=== PATIENT | female | born 1995 | race African-American/Black ===

== ENCOUNTER 2017-06-26 09:51 | Emergency (ER) | payer SELFPAY ==
[~2017-06-26] VITALS: Ht 172.7 cm; Wt 78.0 kg
[~2017-06-26 09:51] MED LIST: DIFL150T PO; FLAG500T PO; ORTHTAB3
[2017-06-26 10:05] VITALS: BP 116/62; PULSE 88; RESP 15; TEMP 97.9; O2SAT 98
[2017-06-26] MEDS ORDERED: ERYTOIN10 RIGHT EYE (11:31)
--- NOTE | 2017-06-26 11:38 | PD ---
HPI Chief Complaint: Eye Problems/Injury Time Seen by Provider: 11:27 Travel History International Travel<30 days: No Contact w/Intl Traveler<30days: No Traveled to known affect area: No History of Present Illness HPI 22 YO F presents to the ED for evaluation of 2 day history of crusting, tearing , sarah sensation and redness of the right eye. Gradual onset. She states the eye is crusted shut in the morning. Patient denies history of seasonal allergies, cold or flu symptoms. Denies foreign body sensation, changes in vision, fevers, chills. She has never had a problem like this in the past. She states that she had a false lashes placed a few weeks ago. She states that she was staying at a hotel for spring when symptoms onset. PFSH Past Medical History Gastrointestinal Disorders: Yes ([facility]) ?: Not LMP: 06/2017 Social History Alcohol Use: No Tobacco Use: No Substance Use: Yes (marijuana daily) Allergies-Medications (Allergen,Severity, Reaction): Coded Allergies: No Known Allergies (Unverified Adverse Reaction, Unknown, 06/26/17) Reported Meds & Prescriptions Reported Meds & Active Scripts Active Flagyl (Metronidazole) 500 Mg Tab 500 Mg PO BID Diflucan 150 mg (Fluconazole) 150 Mg Tab 150 Mg PO ONCE Reported Ortho Tri-Cyclen Lo (Norgestimate-Ethinyl Estradiol) Cycln Lo Tab Review of Systems Except as stated in HPI: all other systems reviewed are Neg Physical Exam Narrative GENERAL: Well-nourished, well-developed AA female in no acute distress. SKIN: Warm and dry. HEAD: Normocephalic. Atraumatic. EYES: No scleral icterus. PERRLA. EOMI. Right eye mildly injected. No evidence of hordeolum. No abrasion noted on fluorescein exam. ENT: Pearly lamb tympanic membranes bilaterally. Nasal mucosa is moist. Oropharynx without erythema, edema or exudate. NECK: Supple, trachea midline. No JVD or lymphadenopathy. CARDIOVASCULAR: Regular rate and rhythm without murmurs, gallops, or rubs. No carotid bruits. 2+ DP and radial pulses bilaterally. RESPIRATORY: Breath sounds clear and equal bilaterally. No accessory muscle use. GASTROINTESTINAL: Abdomen soft, non-tender, nondistended. + Bowel sounds MUSCULOSKELETAL: No cyanosis, or edema. Full, active range of motion. Strength 5/5. Neurovascularly intact. BACK: Nontender without obvious deformity. No CVA tenderness. Data Data Last Documented VS Vital Signs Date Time Temp Pulse Resp B/P (MAP) Pulse Ox O2 Delivery O2 Flow Rate FiO2 06/26/17 10:05 97.9 88 15 116/62 (80) 98 MDM Medical Decision Making Medical Screen Exam Complete: Yes Emergency Medical Condition: Yes Differential Diagnosis Conjunctivitis versus hordeolum versus corneal abrasion versus other Narrative Course 22 YO F presents to the ED for evaluation of 2 day history of crusting, tearing , sarah sensation and redness of the right eye. She states that he was shut in the morning with "goop." Patient denies history of seasonal allergies, cold or flu symptoms. Denies foreign body sensation, changes in vision, fevers, chills. She had false lashes placed last week. She states that she was staying at a hotel for spring when symptoms onset. Vitals reviewed. Exam consistent with conjunctivitis. Patient is prescribed erythromycin ointment 4 times a day 5 days. She was given detailed care instructions, instructed to follow with the supervisor beam department if symptoms are not improved. She is stable and discharged home. Diagnosis Primary Impression: Conjunctivitis Qualified Codes: H10.31 - Unspecified acute conjunctivitis, right eye Referrals: Senior Network Administrator Additional Instructions: Rest, hydrate. Use ointment ribbon 4 times daily as prescribed. Wash hands before and after touching the eye. Did not allow the tip of the antibiotic ointment to touch the eye. Wash pillow cases. Follow-up with the supervisor beam department. Return to the ED for worsening symptoms or any urgent or emergent medical condition. Med/Other Pt SpecificInfo: Prescription(s) given Scripts Erythromycin Opth Oint (Erythromycin Opth Oint) 5 Mg/Gm Oint 1 APPLIC RIGHT EYE QID for Infection for 5 Days, #1 TUBE 0 Refills Prov: Jesse Ramirez MD 06/26/17 Disposition: 01 DISCHARGE HOME Condition: Stable Eli Bacon Jun 26, 2017 11:38
== END 2017-06-26 11:48 | disposition home or self-care (01) ==
LOC: NEPK 09:51
DX: H10.9 Unspecified conjunctivitis (principal)
CPT/HCPCS: 99283